=== PATIENT | female | born 1990 | race Caucasian/White ===

== ENCOUNTER 2021-12-07 21:18 | Emergency (ER) | payer OTHER, SELFPAY ==
[2021-12-07 22:43] LABS: Urine Blood 2+ (Negative); Urine Glucose Negative (Negative); Urine Protein Negative (Negative); Urine Specific Gravity <=1.005 (1.005-1.030)
[2021-12-07 22:57] LABS: Absolute Lymphocytes (CBC) 1.7 K/uL (0.7-4.9); Hematocrit 39.6 % (36.0-45.0); Lymphocytes % 13.2 % (15.3-44.8); MCV 89.4 fL (80-100); MPV 9.9 fL (7.6-11.3); RBC Red Blood Cell Count 4.43 M/uL (3.86-4.86)
[2021-12-07 23:22] LABS: Potassium 3.6 mmol/L (3.5-5.1)
[2021-12-07] MEDS ORDERED: NA CHLORIDE 0.9% 1,000 ML ONE (23:54)
--- NOTE | 2021-12-08 00:08 | ER ---
Nurse's Notes [facility] Name: Val Dey Age: 31 yrs Sex: Female : 1990 Arrival Date: 12/07/2021 Time: 21:33 Bed 18 Private MD: Diagnosis: Dizziness and giddiness Presentation: 12/07 21:38 Chief complaint: Patient states: I started feeling nauseous and faint about an hour ago bm7 and my mouth feels really dry. Coronavirus screen: Client presents with at least one sign or symptom that may indicate coronavirus-19. Standard/surgical mask placed on the client. Ebola Screen: No symptoms or risks identified at this time. Initial Sepsis Screen: Does the patient meet any 2 criteria? No. Patient's initial sepsis screen is negative. Does the patient have a suspected source of infection? No. Patient's initial sepsis screen is negative. Risk Assessment: Do you want to hurt yourself or someone else? Patient reports no desire to harm self or others. Onset of symptoms was December 07, 2021. 21:38 Method Of Arrival: Ambulatory bm7 21:38 Acuity: TANVIR 4 bm7 12/08 00:08 Acuity: TANVIR 3 kl Triage Assessment: 12/07 21:39 General: Appears in no apparent distress. comfortable, Behavior is calm, cooperative, bm7 appropriate for age. Pain: Denies pain. EENT: No deficits noted. No signs and/or symptoms were reported regarding the EENT system. Neuro: Level of Consciousness is awake, alert, obeys commands, Oriented to person, place, time, situation, Instructor Kindergarten are equal bilaterally Moves all extremities. Gait is steady, Speech is normal, Facial symmetry appears normal, Pupils are PERRLA, Reports weakness Denies blurred vision headache. Cardiovascular: No deficits noted. Respiratory: No deficits noted. GI: Abdomen is round non-distended, Bowel sounds present X 4 quads. Abd is soft and non tender X 4 quads. Reports nausea, Patient currently denies vomiting. : No deficits noted. No signs and/or symptoms were reported regarding the genitourinary system. Derm: No deficits noted. No signs and/or symptoms reported regarding the dermatologic system. Musculoskeletal: No deficits noted. No signs and/or symptoms reported regarding the musculoskeletal system. 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 - Social history:: Smoking status: Patient denies any tobacco usage or history of. Patient uses street drugs, marijuana. Screenin:59 Abuse screen: Denies threats or abuse. Denies injuries from another. Nutritional kd3 screening: No deficits noted. Tuberculosis screening: No symptoms or risk factors identified. Fall Risk None identified. Assessment: 21:58 General: Appears in no apparent distress. Behavior is calm, cooperative. Pain: Denies kd3 pain. Neuro: Level of Consciousness is awake, alert, obeys commands, Oriented to person, place, time, situation. Respiratory: Airway is patent Trachea midline Respiratory effort is even, unlabored, Respiratory pattern is regular, symmetrical. GI: Abdomen is non-distended, Reports nausea. 23:50 Reassessment: No changes from previously documented assessment. Patient and/or family kd3 updated on plan of care and expected duration. Pain level reassessed. Patient is alert, oriented x 3, equal unlabored respirations, skin warm/dry/pink. Patient denies pain at this time. Vital Signs: 21:38 BP 139 / 79; Pulse 88; Resp 16; Temp 98.5(TE); Pulse Ox 100% on R/A; Weight 106.59 kg bm7 (R); Height 5 ft. 6 in. (167.64 cm); Pain 0/10; 21:59 BP 131 / 98; Pulse 92; Resp 19; Pulse Ox 99% on R/A; kd3 22:30 BP 116 / 62 Supine; Pulse 90; Resp 16; Pulse Ox 98% on R/A; kd3 22:39 BP 129 / 79 Sitting; Pulse 83; Resp 19; Pulse Ox 98% on R/A; kd3 22:45 BP 120 / 92 Standing; Pulse 87; Resp 16; Pulse Ox 98% on R/A; kd3 23:50 BP 108 / 69; Pulse 86; Resp 18; Pulse Ox 100% on R/A; kd3 21:38 Body Mass Index 37.93 (106.59 kg, 167.64 cm) bm7 ED Course: 21:33 Patient arrived in ED. bp1 21:39 Triage completed. bm7 21:39 Arm band placed on right wrist. bm7 21:41 Caty Ellis FNP-C [facility]. kb 21:41 Deven Rice MD is Attending Physician. kb 21:51 Adele Britt, CHAVO is Primary Nurse. kd3 21:59 Patient has correct armband on for positive identification. kd3 22:00 Assisted to bathroom. bm7 22:35 Basic Metabolic Panel Sent. kd3 22:35 CBC with Diff Sent. kd3 22:36 EKG done, by ED staff, reviewed by Deven Rice MD. 5 22:47 Bed in low position. Call light in reach. Side rails up X2. Adult w/ patient. Warm mh5 blanket given. ekg monitor on. Pulse ox on. NIBP on. 12/08 00:25 No provider procedures requiring assistance completed. IV discontinued, intact, tw5 bleeding controlled, No redness/swelling at site. Pressure dressing applied. Administered Medications: 12/07 23:46 Drug: NS 0.9% 1000 ml Route: IV; Rate: 1000 ml; Site: right antecubital; kd3 12/08 00:26 Follow up: Response: No adverse reaction; IV Status: Completed infusion; IV Intake: tw5 1000ml Medication: 12/07 22:00 VIS not applicable for this client. kd3 Intake: 12/08 00:26 IV: 1000ml; Total: 1000ml. tw5 Outcome: 00:08 Discharge ordered by . kb 00:25 Discharged to home ambulatory. tw5 00:25 Condition: improved 00:25 Discharge instructions given to patient, Instructed on discharge instructions, follow up and referral plans. Demonstrated understanding of instructions, follow-up care. 00:26 Patient left the ED. tw5 Signatures: Caty Ellis FNP-C FNP-Angélica Vicente, Thuy Maradiaga RN 5 Wanda Segal bp1 Wanda Russo RN RN bm7 Wood, Tiffany tw5 Adele Britt, CHAVO TONY 3
--- NOTE | 2021-12-08 00:09 | EDPHYS ---
Physician Documentation [facility] Name: Val eDy Age: 31 yrs Sex: Female : 1990 Arrival Date: 12/07/2021 Time: 21:33 Bed 18 Private MD: MATTEO Physician Deven Rice HPI: 12/07 23:28 This 31 yrs old Female presents to ER via Ambulatory with complaints of Dizziness, kb Nausea. 23:28 The patient presents with dizziness, feeling faint. Onset: The symptoms/episode kb began/occurred 2 hour(s) ago. Context: occurred at home. Modifying factors: The symptoms are alleviated by nothing, the symptoms are aggravated by nothing. Associated signs and symptoms: Pertinent positives: near-syncope. Severity of symptoms: At their worst the symptoms were mild moderate in the emergency department the symptoms have resolved. Patient's baseline: Neuro: alert and fully oriented, Motor: no deficits, Ambulation: walks without assistance, Speech: normal. The patient has not experienced similar symptoms in the past. The patient has not recently seen a physician. Pt reports she has been having waves of dizziness/near syncope for 2 hours. States her symptoms are now resolved. 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 - Social history:: Smoking status: Patient denies any tobacco usage or history of. Patient uses street drugs, marijuana. ROS: 23:27 Constitutional: Negative for fever, chills, and weight loss. kb 23:27 Neuro: Positive for dizziness, near syncope. 23:27 All other systems are negative. Exam: 22:47 Constitutional: This is a well developed, well nourished patient who is awake, alert, kb and in no acute distress. Head/Face: Normocephalic, atraumatic. Eyes: Pupils equal round and reactive to light, extra-ocular motions intact. Lids and lashes normal. Conjunctiva and sclera are non-icteric and not injected. Cornea within normal limits. Periorbital areas with no swelling, redness, or edema. ENT: Moist Mucous membranes Cardiovascular: Regular rate and rhythm with a normal S1 and S2. No gallops, murmurs, or rubs. No pulse deficits. Respiratory: Respirations even and unlabored. No increased work of breathing. Talking in full sentences Abdomen/GI: Soft, non-tender. No distention Skin: Warm, dry with normal turgor. Normal color. MS/ Extremity: Pulses equal, no cyanosis. Neurovascular intact. Full, normal range of motion. Neuro: Awake and alert, GCS 15, oriented to person, place, time, and situation. Moves all extremities. Normal gait. Psych: Awake, alert, with orientation to person, place and time. Behavior, mood, and affect are within normal limits. 22:47 ECG was reviewed by the Attending Physician. Vital Signs: 21:38 BP 139 / 79; Pulse 88; Resp 16; Temp 98.5(TE); Pulse Ox 100% on R/A; Weight 106.59 kg bm7 (R); Height 5 ft. 6 in. (167.64 cm); Pain 0/10; 21:59 BP 131 / 98; Pulse 92; Resp 19; Pulse Ox 99% on R/A; kd3 22:30 BP 116 / 62 Supine; Pulse 90; Resp 16; Pulse Ox 98% on R/A; kd3 22:39 BP 129 / 79 Sitting; Pulse 83; Resp 19; Pulse Ox 98% on R/A; kd3 22:45 BP 120 / 92 Standing; Pulse 87; Resp 16; Pulse Ox 98% on R/A; kd3 23:50 BP 108 / 69; Pulse 86; Resp 18; Pulse Ox 100% on R/A; kd3 21:38 Body Mass Index 37.93 (106.59 kg, 167.64 cm) bm7 MDM: 21:42 Patient medically screened. [facility] 23:28 Data reviewed: vital signs, nurses notes. Data interpreted: Pulse oximetry: on room air kb is 98 %. Interpretation: normal. Counseling: I had a detailed discussion with the patient and/or guardian regarding: the historical points, exam findings, and any diagnostic results supporting the discharge/admit diagnosis, lab results, the need for outpatient follow up, a family practitioner, to return to the emergency department if symptoms worsen or persist or if there are any questions or concerns that arise at home. 12/08 00:08 ED course: Discussed follow up with assisted sales representative for possible holter monitor if kb symptoms persist. 12/07 22:16 Order name: CBC with Diff; Complete Time: 23:02 kb 12/07 22:16 Order name: Basic Metabolic Panel; Complete Time: 23:27 kb 12/07 22:43 Order name: Test, Serum; Complete Time: 23:27 kd3 12/07 22:44 Order name: Urine Dipstick-Ancillary; Complete Time: 22:44 EDMS 12/07 22:16 Order name: IV Start; Complete Time: 22:35 kb 12/07 22:16 Order name: Orthostatics; Complete Time: 22:35 kb 12/07 22:16 Order name: EKG; Complete Time: 22:17 kb 12/07 22:16 Order name: EKG - Nurse/Tech; Complete Time: 22:36 kb 12/07 22:16 Order name: Urine Dipstick-Ancillary (obtain specimen); Complete Time: 22:42 kb EC/03 22:47 Rate is 91 beats/min. Rhythm is regular. QRS [place] is Normal. [place] interval is normal at kb 156 msec. QRS interval is normal at 90 msec. QT interval is normal at 445 msec. Administered Medications: 23:46 Drug: NS 0.9% 1000 ml Route: IV; Rate: 1000 ml; Site: right antecubital; kd3 12/08 00:26 Follow up: Response: No adverse reaction; IV Status: Completed infusion; IV Intake: tw5 1000ml Disposition Summary: 12/08/21 00:08 Discharge Ordered Location: Home kb Condition: Stable kb Diagnosis - Dizziness and giddiness kb Followup: kb - With: Emergency Department - When: As needed - Reason: Worsening of condition Followup: kb - With: Private Physician - When: 2 - 3 days - Reason: Recheck today's complaints, Continuance of care, Re-evaluation by your physician Discharge Instructions: - Discharge Summary Sheet kb - Near-Syncope, [id number] kb - Dizziness, [id number] kb Forms: - Medication Reconciliation Form kb - Thank You Letter kb - Antibiotic Education kb - Prescription Opioid Use kb Signatures: Dispatcher [employer] EDMS Caty Ellis WIRE FRAME MAKER-C WIRE FRAME MAKER-Mingb Deven Rice MD MD cha McCarthy, Brittany, RN RN bm7 Adele Britt RN RN kd3 Carmen Colvin tw5 Corrections: (The following items were deleted from the chart) 12/07 22:43 22:16 Urine Test ordered. kd3
[2021-12-08 01:37] VITALS: O2SAT 100
[2021-12-08 01:48] VITALS: TEMP 97.8
[2021-12-08 01:51] VITALS: BP 102/70
--- NOTE | 2021-12-10 14:37 | EKG ---
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
== END 2021-12-08 00:26 | disposition home or self-care (01) ==
LOC: ER 21:18
DX: R42 Dizziness and giddiness (principal); Z88.5 Allergy status to narcotic agent
CPT/HCPCS: 36415; 80048; 81003; 84703; 85025; 93005; 96360; 99284; J7030

== ENCOUNTER 2022-05-13 19:40 | Emergency (ER) | payer SELFPAY ==
[2022-05-13] MEDS ORDERED: NA CHLORIDE 0.9% 1,000 ML ONE (20:14)
[2022-05-13 20:18] LABS: Urine Blood 2+ (Negative); Urine Glucose Negative (Negative); Urine Protein Negative (Negative)
--- NOTE | 2022-05-13 20:26 | RAD REPORT ---
EXAM DESCRIPTION: RAD - Chest Single View - 05/13/2022 8:21 pm CLINICAL HISTORY: Chest pain Chest pain. COMPARISON: Chest Pa And Lat (2 Views) dated 03/07/2016; CHEST PA AND LAT 2 VIEW dated 04/10/2010; CHES T PA AND LAT 2 VIEW dated 12/04/2004 FINDINGS: Portable technique limits examination quality. The lungs are grossly clear. The heart is normal in size. No displaced fractures. IMPRESSION: No acute intrathoracic process suspected.
[2022-05-13 20:33] LABS: Absolute Lymphocytes (CBC) 2.1 K/uL (0.7-4.9); Hematocrit 40.9 % (36.0-45.0); MCV 90.9 fL (80-100); MPV 9.7 fL (7.6-11.3); RBC Red Blood Cell Count 4.51 M/uL (3.86-4.86)
[2022-05-13 20:34] LABS: Protime INR 0.92
[2022-05-13 20:43] LABS: ALT/SGPT 30 U/L (13-56); Albumin 3.7 g/dL (3.4-5.0); Alkaline Phosphatase 59 U/L (45-117); BUN Blood Urea Nitrogen 16 mg/dL (7-18); Bicarbonate 27 mmol/L (21-32); Bilirubin Total 0.2 mg/dL (0.2-1.0); C-Reactive Protein 3.66 mg/L (<3.00); Glomerular Filtration Rate 119 ml/min (=/>90); Glucose Level 118 mg/dL (74-106); NT PRO-BNP 15 pg/mL (<125); Protein, Total 6.8 g/dL (6.4-8.2); Sodium Level 141 mmol/L (136-145); Troponin High Sensitivity 5.5 pg/mL (<58.9)
[2022-05-13 20:45] LABS: AST/SGOT 24 U/L (15-37); Bilirubin Direct < 0.1 mg/dL (0-0.2); Magnesium 2.2 mg/dL (1.6-2.4)
--- NOTE | 2022-05-13 22:25 | ER ---
Nurse's Notes [facility] Name: Val Dey Age: 31 yrs Sex: Female : 1990 Arrival Date: 05/13/2022 Time: 19:49 Bed 2 Private MD: Diagnosis: Palpitations Presentation: 05/13 19:49 Chief complaint: EMS states: "pt is having difficulty breathing and chest palpations. mb9 Pt took at home COVID test Thursday that was positive. Pt has been having trouble eating and drinking.". Coronavirus screen: difficulty breathing, nausea, shortness of breath, vomiting. Ebola Screen: No symptoms or risks identified at this time. Initial Sepsis Screen: Does the patient meet any 2 criteria? No. Patient's initial sepsis screen is negative. Does the patient have a suspected source of infection? No. Patient's initial sepsis screen is negative. Risk Assessment: Do you want to hurt yourself or someone else? Patient reports no desire to harm self or others. Onset of symptoms was May 13, 2022. 19:49 Method Of Arrival: EMS: [facility] mb9 19:49 Acuity: TANVIR 3 mb9 Triage Assessment: 19:52 General: Appears in no apparent distress. comfortable, Behavior is calm, cooperative, mb9 appropriate for age. Pain: Complains of pain in chest Pain currently is 5 out of 10 on a pain scale. Quality of pain is described as tightness and palpations Pain began suddenly, Is intermittent. Neuro: Level of Consciousness is awake, alert, obeys commands, Oriented to person, place, time, situation, Appropriate for age. Cardiovascular: Heart tones S1 S2 present Capillary refill < 3 seconds is brisk Patient's skin is warm and dry. Rhythm is regular. Respiratory: Airway is patent Respiratory effort is even, unlabored, Respiratory pattern is regular, symmetrical, Breath sounds are clear bilaterally. GI: Abdomen is round non-distended, Bowel sounds present X 4 quads. Abd is soft and non tender X 4 quads. Reports diarrhea, intolerance of fluids, intolerance of food, nausea. : No signs and/or symptoms were reported regarding the genitourinary system. Derm: Skin is pink, warm \\T\\ dry. Musculoskeletal: Range of motion: intact in all extremities. 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 - Social history:: Smoking status: Patient denies any tobacco usage or history of. Screenin:54 [facility] ED Fall Risk Assessment (Adult) History of falling in the last 3 months, mb9 including since admission No falls in past 3 months (0 pts) Confusion or Disorientation No (0 pts) Intoxicated or Sedated No (0 pts) Impaired Gait No (0 pts) Mobility Assist Device Used No (0 pt) Altered Elimination No (0 pt) Score/Fall Risk Level 0 - 2 = Low Risk Oriented to surroundings, Maintained a safe environment, Educated pt \\T\\ family on fall prevention, incl call for assistance when getting out of bed. Abuse screen: Denies threats or abuse. Nutritional screening: No deficits noted. Tuberculosis screening: No symptoms or risk factors identified. Assessment: 20:18 General: Appears in no apparent distress. comfortable, Behavior is calm, cooperative, tw5 appropriate for age, Reports "It isn't really chest pain, it was more like palpitations. It was making me feel anxious because I don't know what is causing that.". Pain: Denies pain. Neuro: Level of Consciousness is awake, alert, obeys commands, Oriented to person, place, time, situation. Cardiovascular: Capillary refill < 3 seconds is brisk in bilateral fingers Pulses are all present. Rhythm is sinus rhythm with unifocal PVCs Patient provided education verbal education on PVC's. 20:49 Reassessment: Patient appears in no apparent distress at this time. No changes from tw5 previously documented assessment. Patient and/or family updated on plan of care and expected duration. Pain level reassessed. Patient is alert, oriented x 3, equal unlabored respirations, skin warm/dry/pink. 22:26 Reassessment: pt denies chest tightness, palpations, and difficulty breathing. Rhythm mb9 is regular. Respirations are even and unlabored. Vital Signs: 19:49 BP 120 / 41; Pulse 92; Resp 20; Temp 98.2(O); Pulse Ox 100% on R/A; Weight 113.4 kg; mb9 Height 5 ft. 5 in. (165.10 cm); Pain 5/10; 20:18 BP 133 / 90; Pulse 90; Resp 18; Pulse Ox 100% on R/A; tw5 21:56 BP 118 / 75; Pulse 78; Resp 16; Pulse Ox 100% on R/A; mb9 19:49 Body Mass Index 41.60 (113.40 kg, 165.10 cm) mb9 ED Course: 19:49 Patient arrived in ED. mb9 19:51 Triage completed. mb9 19:51 Arm band placed on. mb9 19:55 Placed in gown. Bed in low position. Call light in reach. Side rails up X 1. Client mb9 placed on continuous cardiac and pulse oximetry monitoring. NIBP monitoring applied. color television console monitor on. 19:55 No provider procedures requiring assistance completed. Maintain EMS IV. Dressing mb9 intact. Good blood return noted. Site clean \\T\\ dry. Gauge \\T\\ site: 20 gauge to right AC. 19:56 Faiza Carson RN is Primary Nurse. mb9 20:00 Caty Ellis FNP-C is PHCP. kb 20:00 Deven Rice MD is Attending Physician. kb 20:05 EKG done, by ED staff, reviewed by Caty [place]. mb9 20:14 Basic Metabolic Panel Sent. tw5 20:14 LFT's Sent. tw5 20:14 Magnesium Sent. tw5 20:15 NT PRO-BNP Sent. tw5 20:15 PT-INR Sent. tw5 20:15 Troponin HS Sent. tw5 20:15 CRP Sent. tw5 20:15 D-Dimer Sent. tw5 20:18 Door closed. Noise minimized. Moved to private room. Warm blanket given. Verbal tw5 reassurance given. 20:23 XRAY Chest (1 view) In Process Unspecified. EDMS 20:49 Assisted to bathroom. tw5 22:43 IV discontinued, intact, bleeding controlled, Pressure dressing applied. mb9 Administered Medications: 20:22 Drug: NS 0.9% 1000 ml Route: IV; Rate: 1 bolus; Site: right antecubital; tw5 Medication: 19:55 VIS not applicable for this client. mb9 Outcome: 22:25 Discharge ordered by . kb 22:43 Discharged to home ambulatory. mb9 22:43 Condition: stable 22:43 Discharge instructions given to patient, Instructed on discharge instructions, follow up and referral plans. Demonstrated understanding of instructions, medications. 22:43 Patient left the ED. mb9 Signatures: Dispatcher [employer] EDMS Caty Ellis, PLAYERS ASSISTANT-C PLAYERS ASSISTANT-Anshu ColvinCarmen tw5 Faiza Carson, RN RN mb9 Corrections: (The following items were deleted from the chart) 19:56 19:55 PSHx: arm; mb9 mb9 20:58 20:15 D-DIMER+COAG.LAB.BRZ drawn and sent. EDMS 21:00 20:15 CBC+H.LAB.BRZ drawn and sent. EDLA 22:41 20:15 BASIC METABOLIC PANEL+C.LAB.BRZ drawn and sent. EDMS 22:41 20:15 Troponin High Sensitivity+C.LAB.BRZ drawn and sent. EDLA
--- NOTE | 2022-05-13 22:25 | EDPHYS ---
Physician Documentation [facility] Name: Val Dey Age: 31 yrs Sex: Female : 1990 Arrival Date: 05/13/2022 Time: 19:49 Bed 2 Private MD: ED Physician Deven Rice HPI: 05/13 22:26 This 31 yrs old Female presents to ER via EMS with complaints of palpitations. kb 22:26 The patient presents with a history of irregular heart beat. Context: The symptoms kb occur at rest. Onset: The symptoms/episode began/occurred today. Duration: The patient or guardian reports a single episode. Modifying factors: The symptoms are aggravated by nothing. The symptoms are alleviated by nothing. Associated signs and symptoms: The patient has no apparent associated signs or symptoms. Severity of symptoms: At their worst the symptoms were moderate in the emergency department the symptoms have improved. The patient has not experienced similar symptoms in the past. The patient has not recently seen a physician. Pt reports she felt like her heart was skipping beats today. Reports she had fever, chills and bodyaches over the weekend and tested positive for covid. Denies chest pain or shortness of breath. PRESSER AUTOMATIC: 19:55 LMP N/A - control method mb9 Historical: - Allergies: 19:51 Morphine; mb9 - Home Meds: 19:51 mirena [Active]; mb9 - PSHx: 19:51 Cholecystectomy; mb9 - Immunization history:: Adult Immunizations up to date. - Social history:: Smoking status: Patient denies any tobacco usage or history of. ROS: 22:26 Constitutional: Negative for fever, chills, and weight loss. kb 22:26 Cardiovascular: Positive for palpitations. 22:26 All other systems are negative. Exam: 22:26 Constitutional: This is a well developed, well nourished patient who is awake, alert, kb and in no acute distress. Head/Face: Normocephalic, atraumatic. ENT: Moist Mucous membranes Cardiovascular: Regular rate and rhythm with a normal S1 and S2. No gallops, murmurs, or rubs. No pulse deficits. Respiratory: Respirations even and unlabored. No increased work of breathing. Talking in full sentences Abdomen/GI: Soft, non-tender. No distention Skin: Warm, dry with normal turgor. Normal color. MS/ Extremity: Pulses equal, no cyanosis. Neurovascular intact. Full, normal range of motion. Neuro: Awake and alert, GCS 15, oriented to person, place, time, and situation. Moves all extremities. Normal gait. Vital Signs: 19:49 BP 120 / 41; Pulse 92; Resp 20; Temp 98.2(O); Pulse Ox 100% on R/A; Weight 113.4 kg; mb9 Height 5 ft. 5 in. (165.10 cm); Pain 5/10; 20:18 BP 133 / 90; Pulse 90; Resp 18; Pulse Ox 100% on R/A; tw5 21:56 BP 118 / 75; Pulse 78; Resp 16; Pulse Ox 100% on R/A; mb9 19:49 Body Mass Index 41.60 (113.40 kg, 165.10 cm) mb9 MDM: 20:01 Patient medically screened. kb 22:26 Differential diagnosis: arrythmia, dehydration. Data reviewed: vital signs, nurses kb notes. Counseling: I had a detailed discussion with the patient and/or guardian regarding: the historical points, exam findings, and any diagnostic results supporting the discharge/admit diagnosis, lab results, radiology results, the need for outpatient follow up, a [employer], a family practitioner, to return to the emergency department if symptoms worsen or persist or if there are any questions or concerns that arise at home. 05/13 20:03 Order name: Basic Metabolic Panel; Complete Time: 20:54 [facility] 05/13 20:03 Order name: CBC with Diff; Complete Time: 20:54 [facility] 05/13 20:03 Order name: LFT's; Complete Time: 20:54 [facility] 05/13 20:03 Order name: Magnesium; Complete Time: 20:54 [facility] 05/13 20:03 Order name: NT PRO-BNP; Complete Time: 20:54 [facility] 05/13 20:03 Order name: PT-INR; Complete Time: 20:54 [facility] 05/13 20:03 Order name: Troponin HS; Complete Time: 20:54 [facility] 05/13 20:03 Order name: D-Dimer; Complete Time: 20:54 [facility] 05/13 20:03 Order name: CRP; Complete Time: 20:54 [facility] 05/13 20:18 Order name: Urine --Ancillary (enter results); Complete Time: 20:43 mw2 05/13 20:02 Order name: XRAY Chest (1 view); Complete Time: 20:32 kb 05/13 20:02 Order name: EKG; Complete Time: 20:03 kb 05/13 20:02 Order name: Cardiac monitoring; Complete Time: 20:05 kb 05/13 20:02 Order name: EKG - Nurse/Tech; Complete Time: 20:05 kb 05/13 20:02 Order name: IV Saline Lock; Complete Time: 20:05 kb 05/13 20:02 Order name: Labs collected and sent; Complete Time: 20:15 kb 05/13 20:02 Order name: O2 Per Protocol; Complete Time: 20:05 kb 05/13 20:02 Order name: O2 Sat Monitoring; Complete Time: 20:05 kb 05/13 20:03 Order name: Cardiac monitoring; Complete Time: 20:14 [facility] 05/13 20:03 Order name: EKG - Nurse/Tech; Complete Time: 20:14 [facility] 05/13 20:03 Order name: IV Saline Lock; Complete Time: 20:14 [facility] 05/13 20:03 Order name: Labs collected and sent; Complete Time: 20:14 [facility] 05/13 20:19 Order name: Urine Dipstick-Ancillary; Complete Time: 20:24 EDMS 05/13 20:03 Order name: O2 Per Protocol; Complete Time: 20:14 [facility] 05/13 20:03 Order name: O2 Sat Monitoring; Complete Time: 20:14 [facility] 05/13 20:03 Order name: Urine Dipstick-Ancillary (obtain specimen); Complete Time: 20:14 [facility] 05/13 20:03 Order name: Urine Test (obtain specimen); Complete Time: 20:14 [facility] Administered Medications: 20:22 Drug: NS 0.9% 1000 ml Route: IV; Rate: 1 bolus; Site: right antecubital; tw5 Disposition Summary: 05/13/22 22:25 Discharge Ordered Location: Home kb Condition: Stable kb Diagnosis - Palpitations kb Followup: kb - With: Emergency Department - When: As needed - Reason: Worsening of condition Followup: kb - With: Private Physician - When: 2 - 3 days - Reason: Recheck today's complaints, Continuance of care, Re-evaluation by your physician Discharge Instructions: - Discharge Summary Sheet kb - Premature Ventricular Contraction kb - Palpitations, [id number] kb Forms: - Medication Reconciliation Form kb - Thank You Letter kb - Antibiotic Education kb - Prescription Opioid Use kb Signatures: Dispatcher [employer] EDMS Caty Ellis, PADMINI URIBE-Deven Wadsworth MD MD cha Wood, Tiffany tw5 Alli, Faiza Ruggiero, RN RN mb9 Corrections: (The following items were deleted from the chart) 19:56 19:55 PSHx: arm; mb9 mb9 20:23 20:04 Chest Single View+RAD.RAD.BRZ ordered. EDMS EDMS 20:58 20:03 D-DIMER+COAG.LAB.BRZ ordered. EDMS EDMS 21:00 20:03 CBC+H.LAB.BRZ ordered. EDMS EDMS 22:41 20:03 BASIC METABOLIC PANEL+C.LAB.BRZ ordered. EDMS EDMS 22:41 20:03 Troponin High Sensitivity+C.LAB.BRZ ordered. EDMS EDMS
[2022-05-14 00:25] VITALS: TEMP 98.2; O2SAT 100
[2022-05-14 00:28] VITALS: BP 118/75
== END 2022-05-13 22:43 | disposition home or self-care (01) ==
LOC: ER 19:40
DX: R00.2 Palpitations (principal); Z88.5 Allergy status to narcotic agent
CPT/HCPCS: 36415; 71045; 80048; 80076; 81003; 81025; 83735; 83880; 84484; 85025; 85379; 85610; 86140; 93005; J7030